=== PATIENT | male | born 1985 | race Two or more races ===

== ENCOUNTER 2018-01-03 18:26 | Emergency (ER) | payer SELFPAY ==
--- NOTE | 2018-01-03 18:57 | EDPHY ---
H & P Stated Complaint: LUQ ABD PAIN/SWELLING/DIARRHEA X 1 WEEK Source: Patient, Family (White), Special Educator (Special Educator) Exam Limitations: No limitations, Language barrier (Bengali) - Personal History Current Tetanus Diphtheria and Acellular Pertussis (TDAP): Yes - Medical/Surgical History Hx Asthma: No Hx Chronic Respiratory Disease: No Hx Diabetes: No Hx Cardiac Disease: No Hx Renal Disease: No Hx Cirrhosis: No Hx Alcoholism: No Hx HIV/AIDS: No Hx Splenectomy or Spleen Trauma: No Other PMH: PMH:denies. PSH:denies - Social History Smoking Status: Former smoker Time Seen by Provider: 01/03/18 18:56 HPI/ROS: HPI: This is a 32-year-old male who presents with Chief Complaint: LUQ ABD PAIN/SWELLING/DIARRHEA X 1 WEEK Location: Right lower quadrant Quality: Pain and swelling Duration: 24 hr Signs and Symptoms: no fever, + nausea, no vomiting, no hematemesis, no blood in stool, + abdominal bloating, + diarrhea, + lower back pain, no urinary symptoms, no testicular or groin pain, no indigestion, no chest pain, no shortness of breath Timing: Acute Severity: Worse Context: Patient reports that last week he had 1-2 day history of diarrhea that subsided accompanied by right lower quadrant pain that has persisted. Patient reports that within the last 24 hr his pain has rapidly worsened and is now located in the left upper quadrant and epigastric area and accompanied by moderate abdominal swelling. Patient ate an meal around 2:00 p.m. Denies any further diarrhea. He reports that he had a normal bowel movement yesterday. He denies fever/urinary symptoms. He does complain of bilateral lower extremity weakness and cramping. He reports that he has not been able to go to work this week due to feeling fatigue and generally unwell. No history of abdominal surgeries. Modifying Factors: None Comment: ROS: see HPI Constitutional: No fever, no chills, no weight loss Eyes: No blurred vision Respiratory: No shortness of breath, no cough Cardiovascular: No chest pain, no palpitations Gastrointestinal: + nausea, no vomiting, + diarrhea, no hematemesis, no blood in stool Genitourinary: No dysuria, no blood in urine Extremities: No myalgias, no edema Neurologic: No weakness, no numbness Skin: No rashes, no petechiae Hematologic: No bruising, no bleeding MEDICAL/SURGICAL/SOCIAL HISTORY: Medical history: Generally healthy. Does not take any regular medications. Surgical history: Denies Social history: Former smoker. Family history noncontributory. CONSTITUTIONAL: Moderate distress adult male, at bedside, awake and alert HEENT: Atraumatic and normocephalic, PERRL, EOMI. Nares patent; no rhinorrhea; no nasal mucosal edema. Tympanic membranes clear. Oropharynx clear, no exudate and moist pink mucosa. Airway patent. No lymphadenopathy. No meningismus. Cardiovascular: Normal S1/S2, regular rate, regular rhythm, without murmur rub or gallop. PULMONARY/CHEST: Symmetrical and nontender. Clear to auscultation bilaterally. Good air movement. No accessory muscle usage. ABDOMEN: Soft, moderately distended, tympanic, right lower quadrant/epigastric/ left upper quadrant tenderness present; no rebound, + guarding, no peritoneal signs, no masses or organomegaly. No CVAT. Hyperactive bowel sounds heard x4. EXTREMITIES: 2/2 pulses, strength 5/5, no deformities, no clubbing, no cyanosis or edema. NEUROLOGICAL: no focal neuro deficits. GCS 15. SKIN: Warm and dry, no erythema. no rash. Good capillary refill. (Margarita Ribera) Constitutional: Initial Vital Signs Temperature (C) 36.4 C 01/03/18 18:31 Heart Rate 73 01/03/18 18:31 Respiratory Rate 17 01/03/18 18:31 Blood Pressure 158/90 H 01/03/18 18:31 O2 Sat (%) 97 01/03/18 18:31 O2 Delivery Mode Room Air Allergies/Adverse Reactions: No Known Allergies Allergy (Verified 01/03/18 18:31) Home Medications: Medication Instructions Recorded Magnesium Citrate [Magnesium 300 ml PO ONCE #1 bottle 01/03/18 Citrate 300 ml (*)] Polyethylene Glycol 3350 [Miralax 17 gm PO DAILY PRN #1 btl 01/03/18 17 gm (*)] Simethicone 125 mg PO Q4 PRN #12 tab.chew 01/03/18 Sod Phos,M-B/Na Phos,Di-Ba [Fleet 133 ml RC ONCE #1 enema 01/03/18 Enema] Medical Decision Making - Diagnostics Imaging Results: Imaging Impressions Abdomen CT 01/03/18 19:05 Impression: No evidence for acute intraabdominal or pelvic abnormality. Mild constipation. Results called and discussed with Margarita Ribera PA-C, on January 03, 2018 at 2001. ED Course/Re-evaluation: Labs, urinalysis, IV fluids, IV medications, CT abdomen and pelvis scan ordered Vital signs reviewed upon arrival and stable. Given 1 L normal saline, IV morphine, IV Zofran with adequate relief 0: Labs reviewed. No signs of leukocytosis/anemia/IVA/elevated LFTs/ electrolyte imbalance/pancreatitis. 2014: Called by radiologist who advised that CT abdomen and pelvis scan shows no signs of appendicitis, diverticulitis, obstruction, ileus, pancreatitis, gallbladder disease. [employer] Teacher film shows significant bowel gas; mildly dilated loops of bowel and constipation. I counseled patient on taking simethicone, magnesium citrate and/or MiraLax. Push fluids. Increased activity level. Patient passed p.o. Trial prior to discharge. This patient was seen under the supervision of my secondary supervising physician. I evaluated care for this patient independently. (Margarita Ribera) Differential Diagnosis: Abdominal pain including but not limited to appendicitis, cholecystitis, gastritis and urinary tract infection. (Margarita Ribera) Other Provider: PHYSICIAN DOCUMENTATION: The patient was evaluated and managed by the Physician Hand Picker. My co- signature indicates that I have reviewed this chart and I agree with the findings and plan of care as documented. I am the secondary supervising physician. (Jam Cheek) - Data Points Laboratory Results: Laboratory Results 01/03/18 18:43 01/03/18 18:43 01/03/18 01/03/18 18:43 18:43 WBC 8.51 10^3/uL 10^3/uL (3.80-9.50) RBC 6.02 10^6/uL 10^6/uL (4.40-6.38) Hgb 16.6 g/dL g/dL (13.7-17.5) Hct 48.2 % % (40.0-51.0) MCV 80.1 fL L fL (81.5-99.8) MCH 27.6 pg L pg (27.9-34.1) MCHC 34.4 g/dL g/dL (32.4-36.7) RDW 13.0 % % (11.5-15.2) Plt Count 347 10^3/uL 10^3/uL (150-400) MPV 9.3 fL fL (8.7-11.7) Neut % (Auto) 49.3 % % (39.3-74.2) Lymph % (Auto) 40.1 % % (15.0-45.0) Mccreary % (Auto) 6.6 % % (4.5-13.0) Eos % (Auto) 2.9 % % (0.6-7.6) Baso % (Auto) 0.7 % % (0.3-1.7) Nucleat RBC Rel Count 0.0 % % (0.0-0.2) Absolute Neuts (auto) 4.20 10^3/uL 10^3/uL (1.70-6.50) Absolute Lymphs (auto) 3.41 10^3/uL H 10^3/uL (1.00-3.00) Absolute Monos (auto) 0.56 10^3/uL 10^3/uL (0.30-0.80) Absolute Eos (auto) 0.25 10^3/uL 10^3/uL (0.03-0.40) Absolute Basos (auto) 0.06 10^3/uL 10^3/uL (0.02-0.10) Absolute Nucleated RBC 0.00 10^3/uL 10^3/uL (0-0.01) Immature Gran % 0.4 % % (0.0-1.1) Immature Gran # 0.03 10^3/uL 10^3/uL (0.00-0.10) Sodium 142 mEq/L mEq/L (135-145) Potassium 4.1 mEq/L mEq/L (3.3-5.0) Chloride 103 mEq/L mEq/L (97-110) Carbon Dioxide 25 mEq/l mEq/l (22-31) Anion Gap 14 mEq/L mEq/L (8-16) BUN 18 mg/dL mg/dL (7-23) Creatinine 0.8 mg/dL mg/dL (0.7-1.3) Estimated GFR > 60 Glucose 112 mg/dL H mg/dL (70-100) Calcium 9.3 mg/dL mg/dL (8.5-10.4) Total Bilirubin 0.5 mg/dL mg/dL (0.1-1.4) Conjugated Bilirubin 0.5 mg/dL mg/dL (0.0-0.5) Unconjugated Bilirubin 0.0 mg/dL mg/dL (0.0-1.1) AST 33 IU/L IU/L (17-59) ALT 54 IU/L IU/L (21-72) Alkaline Phosphatase 103 IU/L IU/L (38-126) Total Protein 7.6 g/dL g/dL (6.3-8.2) Albumin 4.2 g/dL g/dL (3.5-5.0) Lipase 40 IU/L IU/L (23-300) Medications Given: Discontinued Medications Sodium Chloride (Ns) 1,000 mls @ 0 mls/hr IV EDNOW ONE; Wide Open PRN Reason: Protocol Stop: 01/03/18 19:06 Last Admin: 01/03/18 19:14 Dose: 1,000 mls Morphine Sulfate (Morphine) 6 mg IVP EDNOW ONE Stop: 01/03/18 19:06 Last Admin: 01/03/18 19:14 Dose: 6 mg Ondansetron HCl (Zofran) 4 mg IVP EDNOW ONE Stop: 01/03/18 19:06 Last Admin: 01/03/18 19:14 Dose: 4 mg Departure - Departure Disposition: Home, Routine, Self-Care Clinical Impression: Abdominal distension (gaseous) Constipation Qualifiers: Constipation type: other constipation type Qualified Code(s): K59.09 - Other constipation Condition: Good Instructions: Simethicone (By mouth), Magnesium Citrate (By mouth), Constipation (ED) Additional Instructions: Consume a minimum of 8-10 glasses of water or electrolyte fluid replacement drinks that include Gatorade, Powerade, Pedialyte. Eat a bland diet for the next 48 hours and then slowly advance as tolerated. Take magnesium citrate 150 mL x1 when you arrive home. If no bowel movement in 3-4 hours, take another 150 mL. Take MiraLax mixed with 8 oz of Gatorade daily for the next 3 days. Use Fleets enema tonight. Take simethicone/Mylicon as directed for gas pain. Apply a heating pad to your abdomen as need to ease abdominal pain. Establish primary care at the [facility]. If symptoms do not improve in the next 5 -7 days, please follow-up. Return to the ER immediately if you experience new, continued or worsening abdominal pain, fevers/chills, inability to tolerate oral intake, new pain, or any other symptoms that concern you. . Referrals: [facility],. [Clinic] - 5-7 days, if not improved Prescriptions: Magnesium Citrate [Magnesium Citrate 300 ml (*)] 300 ml PO ONCE #1 bottle Polyethylene Glycol 3350 [Miralax 17 gm (*)] 17 gm PO DAILY PRN #1 btl PRN Reason: Constipation Simethicone 125 mg PO Q4 PRN #12 tab.chew PRN Reason: Gas Sod Phos,M-B/Na Phos,Di-Ba [Fleet Enema] 133 ml RC ONCE #1 enema
[2018-01-03 19:03] LABS: PLATELET COUNT 347 10^3/uL (150-400)
[2018-01-03] MEDS ORDERED: ONDANSETRON 4 MG/2 ML VIAL IVP ONE (19:05)
[2018-01-03] MEDS ORDERED: NS 1,000 ML IV ONE (19:05)
[2018-01-03] MEDS ORDERED: IOPAMIDOL (ISOVUE-300) 100 ML BTL ONE (19:14)
[2018-01-03 20:38] VITALS: BP 129/79
== END 2018-01-03 20:36 | disposition home or self-care (01) ==
DX: K59.09 Other constipation (principal); E86.9 Volume depletion, unspecified; Z87.891 Personal history of nicotine dependence
CPT/HCPCS: 96374; J2270; J2405; Q9967